=== PATIENT | female | born 1940 | race Two or more races ===

== ENCOUNTER 2023-05-12 13:02 | Emergency (ER) | payer OTHER ==
[~2023-05-12] VITALS: Ht 160 cm; Wt 77.1 kg
[2023-05-12] MEDS ORDERED: NEURONTIN300 MG PO (13:19)
[2023-05-12] MEDS ORDERED: TRAMADOL HCL E100 M1 PO (13:19)
[2023-05-12] MEDS ORDERED: JANUMET 50-1,01 EACH PO (13:19)
[2023-05-12] MEDS ORDERED: METFORMIN HCL1000 M2 PO (13:20)
== END 2023-05-12 21:05 | disposition home or self-care (01) ==
LOC: ER 13:02
DX: S93.402A Sprain of unspecified ligament of left ankle, initial encounter (principal); W18.30XA Fall on same level, unspecified, initial encounter; Y93.89 Activity, other specified; Y92.018 Other place in single-family (private) house as the place of occurrence of the external cause; Y99.9 Unspecified external cause status; Z88.0 Allergy status to penicillin; E11.9 Type 2 diabetes mellitus without complications; Z79.84 Long term (current) use of oral hypoglycemic drugs; I10 Essential (primary) hypertension